=== PATIENT | female | born 1975 ===

== ENCOUNTER 2020-05-06 06:54 | Inpatient (IN) | payer OTHER ==
[~2020-05-06] VITALS: Ht 170.2 cm; Wt 79.4 kg
[~2020-05-06 06:54] MED LIST: LEVOTHYROXINE25 MCG PO; SERTRALINE HCL100 MG PO
[2020-05-08] MEDS ORDERED: SYNTHROID75 MCG PO (08:52)
[2020-05-09] MEDS ORDERED: Tylenol #3 PO (09:13)
== END 2020-05-09 08:00 | disposition home or self-care (01) | DRG 743 ==
LOC: O/R 05-08 06:30 → CIR.AMB 05-08 06:30 → SURG-SUITE 05-08 06:30 → O/R 05-08 09:50 → EDSTATUS 05-08 14:30 → O/R 05-08 15:21 → SURG-SUITE 05-08 15:21 → O/R 05-09 08:00 → CIR.AMB 05-09 08:00 → SURG-SUITE 05-09 11:39 → O/R 05-09 11:39
PROVIDERS: ADMIT Obstetrics & Gynecology; ATTEND Obstetrics & Gynecology
PROC: 0USG7ZZ Reposition Vagina, Via Natural or Artificial Opening (ICD-10-PCS; 2020-05-08)
PROC: 0UQF7ZZ Repair Cul-de-sac, Via Natural or Artificial Opening (ICD-10-PCS; 2020-05-08)
PROC: 0TJB8ZZ Inspection of Bladder, Via Natural or Artificial Opening Endoscopic (ICD-10-PCS; 2020-05-08)
PROC: 0UT97ZZ Resection of Uterus, Via Natural or Artificial Opening (ICD-10-PCS; principal; 2020-05-08 14:30)
DX: N72 Inflammatory disease of cervix uteri (principal); D25.1 Intramural leiomyoma of uterus; N81.11 Cystocele, midline